=== PATIENT | male | born 1965 | race African-American/Black ===

== ENCOUNTER 2025-03-16 07:01 | Emergency (ER) | payer OTHER ==
[2025-03-16] MEDS: Ketorolac 60 MG/2 ML SDV IM ONE (07:43)
== END 2025-03-16 07:50 | disposition home or self-care (01) ==
LOC: JD.ED 07:01
DX: M54.2 Cervicalgia (principal); M54.41 Lumbago with sciatica, right side; M54.42 Lumbago with sciatica, left side; G89.29 Other chronic pain; E78.00 Pure hypercholesterolemia, unspecified; E10.9 Type 1 diabetes mellitus without complications; Z79.899 Other long term (current) drug therapy
CPT/HCPCS: 96372; 99283; J1171; J1885; 99284